=== PATIENT | female | born 1970 | race Caucasian/White ===

== ENCOUNTER 2019-01-03 13:34 | Emergency (ER) | payer SELFPAY ==
[2019-01-03 13:44] VITALS: BP 119/66; PULSE 72; RESP 13; TEMP 36.4; O2SAT 98
--- NOTE | 2019-01-03 14:01 | DI.RAD.S_ITS ---
PROCEDURE: XR CHEST 2V INDICATIONS: Hemoptysis and short of breath TECHNIQUE: 2 views of the chest were acquired. COMPARISON: [facility], , CHEST 2 VIEW, 10/16/2015, 8:55. FINDINGS: Surgical changes and devices: None. Lungs and pleura: Lungs are clear. No pleural effusions or pneumothorax. Mediastinum: Mediastinal contours are normal. Heart size is normal. Bones and chest wall: No suspicious bony abnormalities. Soft tissues appear unremarkable. IMPRESSION: No acute pulmonary process. Dictated by: Yoon Light M.D. on 01/03/2019 at 14:51 Approved by: Yoon Light M.D. on 01/03/2019 at 14:52
--- NOTE | 2019-01-03 14:07 | ED.CHESTPAIN ---
HPI - Chest Pain General Chief Complaint: Chest Pain Stated Complaint: left sided pain/coughing up blood x2 days Time Seen by Provider: 01/03/19 13:47 Source: patient Mode of arrival: ambulatory Limitations: no limitations History of Present Illness HPI narrative: Patient is a 48-year-old female who presents with hemoptysis. She states that 3 days ago she was gardening she thinks she might have pulled and twisted something she woke up in the left side of her chest hurt. She then coughed up blood. She also is getting extremely short of breath with exertion. She coughed up blood a couple more times after that. She denies any fever. Chest pain is worsened with deep breathing and movement. It is reproducible with palpation and sometimes actually feels better with palpation MD complaint: chest pain Duration: intermittent Related Data Previous Rx's Medication Instructions Recorded enoxaparin [Lovenox] 70 mg SUBCUT Q12H #120 ml 01/03/19 Allergies Allergy/AdvReac Type Severity Reaction Status Date / Time Penicillins Allergy Mild Rash Verified 01/03/19 16:27 Review of Systems Review of Systems ROS Unobtainable: All systems reviewed & are unremarkable except as noted in HPI and below Constitutional Constitutional: Denies chills, Denies fever(s), Denies lethargy and Denies weakness Eyes Eyes: Denies change in vision, Denies eye discharge, Denies irritation and Denies loss of vision ENT Ears, Nose, Mouth, and Throat: Denies change in voice, Denies neck pain and Denies sore throat Cardiovascular Cardiovascular: Reports as per HPI, Reports chest pain and Reports dyspnea on exertion Respiratory Respiratory: Reports hemoptysis and Reports dyspnea on exertion Gastrointestinal Gastrointestinal: Denies abdominal pain, Denies change in bowel habits, Denies diarrhea, Denies nausea and Denies vomiting Genitourinary Genitourinary: Denies hematuria, Denies flank pain, Denies urinary incontinence and Denies urinary urgency Musculoskeletal Musculoskeletal: Denies neck pain Integumentary/Breasts Skin/Breast: Denies pruritus, Denies erythema, Denies rash and Denies wounds Neurologic Neurologic: Denies loss of vision and Denies weakness [facility] Medical History Patient denies significant medical history (Acute) Social History (Updated 01/03/19 @ 14:12 by Vielka Cunningham DO) Smoking Status: Current every day smoker Social History Smoking Status: Current every day smoker Exam Initial Vital Signs Initial Vital Signs: Vital Signs Temperature 97.5 F L 01/03/19 13:44 Pulse Rate 72 01/03/19 13:44 Respiratory Rate 13 01/03/19 13:44 Blood Pressure 119/66 01/03/19 13:44 Pulse Oximetry 98 01/03/19 13:44 GENERAL: Well-appearing, well-nourished and in no acute distress. HEENT: Head atraumatic,EOMI, pupils reactive, face symmetric CARDIOVASCULAR: Pain left-sided chest reproducible with palpation Regular rate and rhythm without murmurs, rubs or gallops. RESPIRATORY: Breath sounds equal bilaterally, no wheezes rales or rhonchi. ABDOMEN: Soft, nontender. Normoactive bowel sounds all 4 quadrants. No guarding or rebound. EXTREMITIES: Normal range of motion, no clubbing or edema. Neurovascularly intact NEUROLOGICAL: Alert and oriented x4.Normal gait and speech. Cranial nerves II through XII grossly intact. SKIN: Warm, dry, no laceration, no petechiae, no rashes or lesions. Scores PERC Score Age greater than or equal to 50 years: Yes Heart rate greater than or equal to 100 bpm: No Room Air O2 Sat less than 95%: No Unilateral leg swelling: No Recent trauma or surgery: No Hemoptysis: Yes Prior PE or DVT: No Hormone Use: No Total PERC Score: 2 Course Orders Ordered: ED Orders 01/03/19 13:42 EKG-12 Lead Routine 01/03/19 14:01 XR chest 2V Stat 01/03/19 14:05 B Type Natriuretic Peptide Stat Complete Blood Count AUTO DIFF Stat Comprehensive Metabolic Panel Stat D Dimer Stat Lipase Stat Partial Thromboplastin Time Stat Prothrombin Time INR Stat Troponin & CK Cardiac Panel Stat 01/03/19 15:16 CT angio chest PE protocol Stat Discontinued Medications Enoxaparin Sodium (Lovenox) 70 mg 1 mg/kg (70 mg) SUBCUT NOW ONE Stop: 01/03/19 16:25 Last Admin: 01/03/19 16:36 Dose: 70 mg Documented by: SMILEY Vital Signs Vital signs: Vital Signs - 8 hr 01/03/19 13:44 01/03/19 14:46 01/03/19 17:30 Temperature 97.5 F L Pulse Rate 72 69 75 Respiratory Rate 13 16 14 Blood Pressure 119/66 114/80 Blood Pressure [Right Arm] 102/70 Pulse Oximetry 98 94 99 MDM - Chest Pain Lab Data Attestation: I reviewed the patient's lab results. Result diagrams: 01/03/19 14:05 01/03/19 14:05 Labs: Lab Results 01/03/19 01/03/19 01/03/19 Range/Units 14:05 14:05 14:05 WBC 6.4 (4.5-11.0) X10^3/uL RBC 4.42 (4.0-5.2) X10^6/uL Hgb 14.4 (12.0-16.0) g/dL Hct 41.9 (36-46) % MCV 94.9 (80-100) fL MCH 32.6 (26-34) PG MCHC 34.3 (30-36) % RDW 12.4 (11.6-14.8) % Plt Count 216 (150-400) X10^3/uL Neut % (Auto) 48.5 L (50-75) % Lymph % (Auto) 39.8 (25-40) % [place] % (Auto) 6.8 (3-14) % Eos % (Auto) 3.7 (2-4) % Baso % (Auto) 1.2 (0-2) % Neut # (Auto) 3100 (9509-0395) /uL Lymph # (Auto) 2500 (9790-9847) /uL [place] # (Auto) 400 (0-900) /uL Eos # (Auto) 200 (0-450) /uL Baso # (Auto) 100 (0-100) /uL PT 9.9 L (10.1-12.7) SECONDS INR 0.9 (0.9-1.3) APTT 29 (26.4-36.2) SECONDS D-Dimer 255 H (<230) ng/mL Sodium 141 (137-145) mmol/L Potassium 3.7 (3.4-5.1) mmol/L Chloride 105 (98-107) mmol/L Carbon Dioxide 25 (22-32) mmol/L BUN 9 (7-17) mg/dL Creatinine 0.50 L (0.52-1.04) mg/dL Estimated GFR > 60.0 (>60) mL/min BUN/Creatinine Ratio 18.0 (6-22) Glucose 84 (70-100) mg/dL Calcium 9.8 (8.4-10.2) mg/dL Total Bilirubin 0.7 (0.2-1.3) mg/dL AST 41 H (14-36) IU/L ALT 45 (9-52) IU/L Alkaline Phosphatase 97 (38-126) U/L Total Creatine Kinase 78 (30-135) U/L CK-MB (CK-2) TNP CK-MB (CK-2) Rel Index TNP Troponin I < 0.012 (0.01-0.034) ng/mL B-Natriuretic Peptide < 100 (<100) Total Protein 7.6 (6.3-8.2) g/dL Albumin 4.5 (3.5-5.0) g/dL Globulin 3.1 (1.7-4.1) g/dL Albumin/Globulin Ratio 1.5 (1.0-2.8) Lipase 165 (23-300) U/L Point of Care Testing Test Results Negative Urine Dip Bedside Urine Glucose Negative Bedside Urine Bilirubin - Negative Bedside Urine Ketone ++ 40 Urine Specific [place] 1.025 Bedside Urine Occult Blood - Negative Bedside Urine pH 5.5 Bedside Urine Protein - Negative Bedside Urine Urobilinogen - Negative Bedside Urine Nitrite - Negative Bedside Urine Leukocytes - Negative Esterase Imaging Data Chest x-ray: Radiologist's impression: PROCEDURE: XR CHEST 2V INDICATIONS: Hemoptysis and short of breath TECHNIQUE: 2 views of the chest were acquired. COMPARISON: [facility], CHEST 2 VIEW, 10/16/2015, 8:55. FINDINGS: Surgical changes and devices: None. Lungs and pleura: Lungs are clear. No pleural effusions or pneumothorax. Mediastinum: Mediastinal contours are normal. Heart size is normal. Bones and chest wall: No suspicious bony abnormalities. Soft tissues appear unremarkable. IMPRESSION: No acute pulmonary process. Dictated by: Yoon Light M.D. on 01/03/2019 at 14:51 Approved by: Yoon Light M.D. on 01/03/2019 at 14:52 CT scan - chest: Radiologist's impression: PROCEDURE: CT ANGIO CHEST PE PROTOCOL INDICATIONS: hemoptysis TECHNIQUE: After the administration of intravenous contrast, 2 mm thick sections acquired from the pulmonary apices to the posterior costophrenic angles. 3-dimensional maximum intensity projection (MIP) coronal and sagittal reformats were then acquired through the thorax. For radiation dose reduction, the following was used: automated exposure control, adjustment of mA and/or kV according to patient size. COMPARISON: [facility], CR, XR CHEST 2V, 01/03/2019, 14:07. FINDINGS: Image quality: Excellent. Pulmonary arteries: There is an acute pulmonary embolus identified within the left lower lobe posterior basilar segment with associated surrounding dilatation. Remainder the visualized pulmonary arteries are normal in size, and demonstrate no other intraluminal filling defects. No evidence for acute right-sided heart strain. Lungs and pleura: 5 mm pleural-based posterior right upper lung nodule seen on image 70, series 5. There is a noncalcified 5 mm anterior right middle lobe nodule seen on image 135, series 5. Scattered, patchy areas of ground glass opacities. Patchy bibasilar atelectasis in the dependent portions of the lungs. No pleural effusions or pneumothorax. Central and peripheral airways are patent. Mediastinum: Heart size is normal, without pericardial effusion. No mediastinal or hilar adenopathy. Thoracic aorta is normal in caliber and enhancement. Esophagus is normal in caliber, with small hiatal hernia. Bones and chest wall: No suspicious bony lesions. Ribs and thoracic spine appear intact throughout. Thyroid gland is unremarkable as visualized. No axillary or supraclavicular adenopathy. Abdomen: Visualized upper abdominal solid organs appear normal in the early arterial phase of enhancement. IMPRESSION: 1. Acute pulmonary embolus involving the posterior basal segment of the left lower lobe. Patchy bibasilar opacities in the dependent portions of the lungs are favored to represent atelectasis. Findings are most pronounced in the posterior left lung base. Early pulmonary infarction not excluded. 2. There are two 5 mm noncalcified pleural-based pulmonary nodules identified in the right hemithorax with one in the right upper lobe and one in the right middle lobe. Consider followup CT in 12 months to document continued stability. 3. Small hiatal hernia. Findings discussed with Dr. Cunningham of the emergency department at 1600 hours. Dictated by: Mehran Lopez M.D. on 01/03/2019 at 15:50 ECG Data Attestation: I personally reviewed and interpreted this ECG as follows: Prior ECG tracings: not available for review Interpretation: Normal sinus rhythm rate 76 p.r. interval 152 QRS 83 T-wave inversion noted in lead [address] elevations or depression MDM Narrative Medical decision making narrative: Patient does have hemoptysis in left-sided pain she is short of breath with exertion she is a PERC score of 2. D-dimer minimally elevated at 255. However I did discuss with her possible PE and need for CT scan. CT does show a small left lower lobe pulmonary embolism. She does not have insurance and she does not have a PCP. I discussed case briefly with hospitalist Dr. Solomon, at this time she does not meet inpatient criteria. Recommend Lovenox shots typically those are more affordable and arrange for outpatient follow-up possible. Discharge Plan Departure Patient Disposition: Home Clinical Impression: Pulmonary emboli Qualifiers: Pulmonary embolism type: unspecified Chronicity: acute Acute cor pulmonale presence: without acute cor pulmonale Qualified Code(s): I26.99 - Other pulmonary embolism without acute cor pulmonale Discharge Date/Time: 01/03/19 17:32 Instructions: DI for Pulmonary Embolism Activity Restrictions/Additional Instructions: *You have been diagnosed with pulmonary embolism *What to do: It is imperative that he follow up with the primary care physician. You will need more testing and close following. He will be on blood thinners for at least 6 months if not longer. Please avoid high a risk activities. If you should fall and hit her head while on blood thinners need to come to the emergency department immediately. While on blood thinners you will bleed easier *Continue to take medications as directed Lovenox 70 mg injection twice a day *Follow up with your primary care provider in 2-3 days, see list *Return to ER if you should have increasing shortness of breath chest pain hitting her head, blood in your stool or any new, worsening or concerning symptoms Prescriptions: New enoxaparin [Lovenox] 100 mg/mL syringe 70 mg SUBCUT Q12H Qty: 120 RF: 0 Referrals: [facility] [Provider Group] [facility] [Provider Group] [facility] [Provider Group] [facility] [Provider Group]
[2019-01-03 14:17] LABS: Add Manual Diff / Slide Review NO; Basophils Absolute Auto 100 /uL (0-100); Basophils Percent Auto 1.2 % (0-2); Eosinophils Absolute Auto 200 /uL (0-450); Eosinophils Percent Auto 3.7 % (2-4); Hematocrit 41.9 % (36-46); Hemoglobin 14.4 g/dL (12.0-16.0); Lymphocytes Absolute Auto 2500 /uL (1100-4500); Lymphocytes Percent Auto 39.8 % (25-40); Mean Corpuscular HGB Conc 34.3 % (30-36); Mean Corpuscular Hemoglobin 32.6 PG (26-34); Mean Corpuscular Volume 94.9 fL (80-100); Monocytes Absolute Auto 400 /uL (0-900); Monocytes Percent Auto 6.8 % (3-14); Neutrophils Absolute Auto 3100 /uL (1500-7000); Neutrophils Percent Auto 48.5 % (50-75); Platelet Count 216 X10^3/uL (150-400); Red Blood Cell Count 4.42 X10^6/uL (4.0-5.2); Red Cell Distribution Width 12.4 % (11.6-14.8); White Blood Cell Count 6.4 X10^3/uL (4.5-11.0)
[2019-01-03 14:24] LABS: INR 0.9 (0.9-1.3); Prothrombin Time 9.9 SECONDS (10.1-12.7)
[2019-01-03 14:27] LABS: D Dimer 255 ng/mL (<230); PTT Partial Thromboplastin Tim 29 SECONDS (26.4-36.2)
[2019-01-03 14:39] LABS: B Type Natriuretic Peptide < 100 (<100)
[2019-01-03 14:40] LABS: Alanine Aminotransferase 45 IU/L (9-52); Albumin 4.5 g/dL (3.5-5.0); Albumin Globulin Ratio 1.5 (1.0-2.8); Alkaline Phosphatase 97 U/L (38-126); Aspartate Aminotransferase 41 IU/L (14-36); Bilirubin Total 0.7 mg/dL (0.2-1.3); Blood Urea Nitrogen 9 mg/dL (7-17); Calcium 9.8 mg/dL (8.4-10.2); Carbon Dioxide 25 mmol/L (22-32); Chloride 105 mmol/L (98-107); Creatine Kinase 78 U/L (30-135); Estimated Glomerular Filt Rate > 60.0 mL/min (>60); Globulin 3.1 g/dL (1.7-4.1); Glucose 84 mg/dL (70-100); HEMOLYSIS < 15 (0-50); Lipase 165 U/L (23-300); Potassium 3.7 mmol/L (3.4-5.1); Sodium 141 mmol/L (137-145); Total Protein 7.6 g/dL (6.3-8.2)
[2019-01-03 14:46] VITALS: BP 102/70; PULSE 69; RESP 16; O2SAT 94
[2019-01-03 14:52] LABS: Troponin I < 0.012 ng/mL (0.01-0.034)
--- NOTE | 2019-01-03 15:16 | DI.CT.S_ITS ---
PROCEDURE: CT ANGIO CHEST PE PROTOCOL INDICATIONS: hemoptysis TECHNIQUE: After the administration of intravenous contrast, 2 mm thick sections acquired from the pulmonary apices to the posterior costophrenic angles. 3-dimensional maximum intensity projection (MIP) coronal and sagittal reformats were then acquired through the thorax. For radiation dose reduction, the following was used: automated exposure control, adjustment of mA and/or kV according to patient size. COMPARISON: [facility], CR, XR CHEST 2V, 01/03/2019, 14:07. FINDINGS: Image quality: Excellent. Pulmonary arteries: There is an acute pulmonary embolus identified within the left lower lobe posterior basilar segment with associated surrounding dilatation. Remainder the visualized pulmonary arteries are normal in size, and demonstrate no other intraluminal filling defects. No evidence for acute right-sided heart strain. Lungs and pleura: 5 mm pleural-based posterior right upper lung nodule seen on image 70, series 5. There is a noncalcified 5 mm anterior right middle lobe nodule seen on image 135, series 5. Scattered, patchy areas of ground glass opacities. Patchy bibasilar atelectasis in the dependent portions of the lungs. No pleural effusions or pneumothorax. Central and peripheral airways are patent. Mediastinum: Heart size is normal, without pericardial effusion. No mediastinal or hilar adenopathy. Thoracic aorta is normal in caliber and enhancement. Esophagus is normal in caliber, with small hiatal hernia. Bones and chest wall: No suspicious bony lesions. Ribs and thoracic spine appear intact throughout. Thyroid gland is unremarkable as visualized. No axillary or supraclavicular adenopathy. Abdomen: Visualized upper abdominal solid organs appear normal in the early arterial phase of enhancement. IMPRESSION: 1. Acute pulmonary embolus involving the posterior basal segment of the left lower lobe. Patchy bibasilar opacities in the dependent portions of the lungs are favored to represent atelectasis. Findings are most pronounced in the posterior left lung base. Early pulmonary infarction not excluded. 2. There are two 5 mm noncalcified pleural-based pulmonary nodules identified in the right hemithorax with one in the right upper lobe and one in the right middle lobe. Consider followup CT in 12 months to document continued stability. 3. Small hiatal hernia. Findings discussed with Dr. Cunningham of the emergency department at 1600 hours. Dictated by: Mehran Lopez M.D. on 01/03/2019 at 15:50 Approved by: Mehran Lopez M.D. on 01/03/2019 at 16:06
[2019-01-03] MEDS: ENOXAPARIN 80 MG/0.8 ML SYRINGE 70 MG SUBCUT (16:36)
[2019-01-03 17:30] VITALS: BP 114/80; PULSE 75; RESP 14; O2SAT 99
== END 2019-01-03 17:32 | disposition home or self-care (01) ==
PROVIDERS: Emergency Provider Emergency Medicine; Family Provider Internal Medicine
DX: I26.99 Other pulmonary embolism without acute cor pulmonale (principal)
CPT/HCPCS: 36591; 71046; 71275; 80053; 81003; 81025; 82550; 83690; 83880; 84484; 85025; 85379; 85610; 85730; 93005; 93010; 96372; 99283; 99285; J1650; Q9967

== ENCOUNTER → 2019-10-17 12:24 | Outpatient (CLI) | payer OTHER, SELFPAY ==
[2019-10-17 13:27] LABS: Add Manual Diff / Slide Review NO; Basophils Absolute Auto 100 /uL (0-100); Basophils Percent Auto 1.4 % (0-2); Eosinophils Absolute Auto 300 /uL (0-450); Eosinophils Percent Auto 4.7 % (2-4); Hematocrit 44.8 % (36-46); Hemoglobin 15.5 g/dL (12.0-16.0); Lymphocytes Absolute Auto 2400 /uL (1100-4500); Lymphocytes Percent Auto 44.2 % (25-40); Mean Corpuscular HGB Conc 34.5 % (30-36); Mean Corpuscular Hemoglobin 32.6 PG (26-34); Mean Corpuscular Volume 94.3 fL (80-100); Monocytes Absolute Auto 300 /uL (0-900); Monocytes Percent Auto 6.1 % (3-14); Neutrophils Absolute Auto 2300 /uL (1500-7000); Neutrophils Percent Auto 43.6 % (50-75); Platelet Count 230 X10^3/uL (150-400); Red Blood Cell Count 4.75 X10^6/uL (4.0-5.2); Red Cell Distribution Width 12.7 % (11.6-14.8); White Blood Cell Count 5.3 X10^3/uL (4.5-11.0)
[2019-10-17 13:30] LABS: Hemoglobin A1C% w Est Avg Glu 5.3 % (4.0-6.0)
[2019-10-17 13:38] LABS: Prothrombin Time 11.2 SECONDS (10.1-12.7)
[2019-10-17 13:53] LABS: Alanine Aminotransferase 22 IU/L (<35); Albumin 4.8 g/dL (3.5-5.0); Albumin Globulin Ratio 1.7 (1.0-2.8); Alkaline Phosphatase 84 U/L (38-126); Aspartate Aminotransferase 28 IU/L (14-36); BUN Creatinine Ratio 11.3 (6-22); Bilirubin Total 0.6 mg/dL (0.2-1.3); Blood Urea Nitrogen 6 mg/dL (7-17); Calcium 10.2 mg/dL (8.4-10.2); Carbon Dioxide 25 mmol/L (22-32); Chloride 109 mmol/L (98-107); Cholesterol 205 mg/dL (140-199); Estimated Glomerular Filt Rate > 60.0 mL/min (>60); Globulin 2.9 g/dL (1.7-4.1); Glucose 90 mg/dL (70-100); HDL Cholesterol 56 mg/dL (40-60); HEMOLYSIS < 15 (0-50); LDL Cholesterol Calculated 116 mg/dL (<100); Potassium 3.9 mmol/L (3.4-5.1); Sodium 142 mmol/L (137-145); Total Protein 7.7 g/dL (6.3-8.2); Triglycerides 167 mg/dL (35-150)
== END ==
PROVIDERS: Family Provider Internal Medicine; PCP Family Medicine; Referring Provider Family Medicine; Visit Provider Family Medicine
DX: I26.99 Other pulmonary embolism without acute cor pulmonale (principal)
CPT/HCPCS: 36415; 80053; 80061; 83036; 85025; 85610

== ENCOUNTER → 2019-11-09 09:51 | Outpatient (CLI) | payer OTHER, SELFPAY ==
--- NOTE | 2019-11-09 10:13 | DI.CT.S_ITS ---
PROCEDURE: CT ANGIO CHEST INDICATIONS: Follow-up pulmonary embolism TECHNIQUE: After the administration of intravenous contrast, 2 mm thick sections acquired from the pulmonary apices to the posterior costophrenic angles. 3-dimensional maximum intensity projection (MIP) coronal and sagittal reformats were then acquired through the thorax. For radiation dose reduction, the following was used: automated exposure control, adjustment of mA and/or kV according to patient size. COMPARISON: [facility], CT, CT ANGIO CHEST PE PROTOCOL, 01/03/2019, 15:21. FINDINGS: Image quality: Excellent. Pulmonary arteries: Pulmonary arteries are normal in size, and demonstrate no intraluminal filling defects to suggest central pulmonary embolism. Lungs and pleura: Lungs are clear of acute opacities. 4 millimeter subpleural nodule in the posterior aspect of the right upper lobe (series 5, image 74), 6 millimeter subpleural nodule in the right middle lobe (series 5, image 133) and 2 millimeter subpleural nodule in the lateral margin of the left lower lobe (series 5, image 162) are not significantly changed compared to the prior examination. No new lung nodules are identified. No pleural effusions or pneumothorax. Central and peripheral airways are patent. Mediastinum: Heart size is normal, without pericardial effusion. No mediastinal or hilar adenopathy. Thoracic aorta is normal in caliber and enhancement. Esophagus is normal in caliber. Small hiatal hernia. Bones and chest wall: No suspicious bony lesions. Ribs and thoracic spine appear intact throughout. Thyroid gland is within normal limits where visualized. No axillary or supraclavicular adenopathy. Abdomen: Visualized upper abdominal solid organs appear normal in the early arterial phase of enhancement. IMPRESSION: 1. No pulmonary embolus. Previously identified embolus involving the posterior basal segment of the right left lower lobe has resolved. 2. Small bilateral lung nodules not significantly changed compared to prior examination. Largest nodule measures 6 millimeters. Recommend follow-up CT scan in 6-12 months to confirm stability. Fleischner Society criteria for SOLID lung nodule followup. Nodule size (mm)Low-risk patientHigh-risk patient<6 (single or multiple)No routine followup.Optional CT at 12 months. 6-8 (single or multiple)CT at 6-12 months, then optional CT at 18-24 mo.CT at 6-12 months, then CT at 18-24 months. >8 (single)CT at 3 months, PET-CT, or biopsy. Same as for low-risk pts. >8 (multiple)CT at 3-6 months, then optional CT at 18-24 mo.CT at 3-6 months, then CT at 18-24 months. Recommendations do not apply to lung cancer screening, patients with immunosuppression, or patients with known primary cancer. Dictated by: Esther Ray MD, PhD on 11/09/2019 at 10:42 Approved by: Esther Ray MD, PhD on 11/09/2019 at 10:51
== END ==
PROVIDERS: Family Provider Internal Medicine; PCP Family Medicine; Referring Provider Family Medicine; Visit Provider Family Medicine
DX: I26.99 Other pulmonary embolism without acute cor pulmonale (principal); R91.8 Other nonspecific abnormal finding of lung field
CPT/HCPCS: 71275; Q9967

== ENCOUNTER → 2020-01-03 08:56 | Outpatient (CLI) | payer OTHER, SELFPAY ==
--- NOTE | 2020-01-03 09:06 | DI.MG.S_ITS ---
Patient Name: ELLY FLOREZ date: 1970 Sex: F Attending Physician: Gautam Indications: Date: 01/03/2020 08:59 At the request of: ALEX Dwayne GAUTAM Procedure: MM screening mammo BI BILATERAL DIGITAL SCREENING MAMMOGRAM 3D/2D WITH CAD: 01/03/2020 CLINICAL: Routine screening. Family history of breast cancer. Comparison is made to exams dated: 07/10/2017 mammogram - [facility], 10/24/2013 mammogram, and 01/23/2011 mammogram - [facility]. The tissue of both breasts is heterogeneously dense. This may lower the sensitivity of mammography. Current study was also evaluated with a Computer Aided Detection (CAD) system. No significant masses, calcifications, or other findings are seen in either breast. There has been no significant interval change. IMPRESSION: NEGATIVE There is no mammographic evidence of malignancy. A 1 year screening mammogram is recommended. This exam was interpreted at Station ID: [id number]. NOTE: For mammograms, a report in lay terms will be sent to the patient. Approximately 15% of breast malignancies will not be visualized mammographically. In the management of a palpable breast mass, a negative mammogram must not discourage biopsy of a clinically suspicious lesion. Electronically Signed By: Perlita pleitez/gely:01/03/2020 10:33:44 copy to: GAGE DE LEON, [facility], ph: [phone] letter sent: Normal Exam ACR BI-RADS Category 1: Negative [id number]
--- NOTE | 2020-01-24 08:46 | ONC.MSW ---
Description: New Referral Navigation Reason for Referral: Pulmonary Embolism: Evaluate for possible inherited clotting disorder. Activity: Reviewed the referral for medical status, acuity, and immediate needs. Forwarded to scheduling for next available initial consult time.
== END ==
PROVIDERS: Family Provider Internal Medicine; PCP Family Medicine; Referring Provider Family Medicine; Visit Provider Family Medicine
DX: Z12.31 Encounter for screening mammogram for malignant neoplasm of breast (principal); Z80.3 Family history of malignant neoplasm of breast
CPT/HCPCS: 77063; 77067

== ENCOUNTER 2020-09-14 09:00 | Emergency (ER) | payer OTHER, SELFPAY ==
[2020-09-14 09:16] VITALS: BP 127/54; PULSE 70; RESP 14; TEMP 36.7; O2SAT 99; BMI 32.0
--- NOTE | 2020-09-14 09:25 | DI.CT.S_ITS ---
PROCEDURE: CT HEAD/BRAIN WO CON INDICATIONS: fall on eliquis. TECHNIQUE: Noncontrast 4.5 mm thick angled axial sections acquired from the foramen magnum to the vertex, with coronal and sagittal reformats. For radiation dose reduction, the following was used: automated exposure control, adjustment of mA and/or kV according to patient size. COMPARISON: None. FINDINGS: Image quality: Excellent. CSF spaces: Basal cisterns are patent. No extra-axial fluid collections. The ventricles are symmetric in size and shape. Brain: No intracranial bleeds or masses. There is cerebral volume loss for age, with resultant ventricular and sulcal prominence. There are periventricular and deep white matter chronic small vessel ischemic changes. There is intracranial internal carotid artery atherosclerosis. Volume averaging artifact related to left temporal bone on image 8/2. Skull and face: Calvarium and visualized facial bones appear intact, without suspicious lesions. Sinuses: Visualized sinuses and mastoids are clear. IMPRESSION: No acute intracranial process. Dictated by: Travis Wise M.D. on 09/14/2020 at 9:35 Approved by: Travis Wise M.D. on 09/14/2020 at 9:38
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
[2020-09-14 11:30] VITALS: BP 116/64; PULSE 63; RESP 19; O2SAT 99
== END 2020-09-14 11:43 | disposition home or self-care (01) ==
PROVIDERS: Emergency Provider Emergency Medicine; Family Provider Family Medicine; PCP Family Medicine
DX: S09.90XA Unspecified injury of head, initial encounter (principal); V19.9XXA Pedal cyclist (driver) (passenger) injured in unspecified traffic accident, initial encounter; Z79.01 Long term (current) use of anticoagulants
CPT/HCPCS: 70450; 99284

== ENCOUNTER 2020-12-24 09:00 | Outpatient (RCR) | payer OTHER, SELFPAY ==
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
--- NOTE | 2020-10-15 15:46 | PT.OPPOC ---
Physical, Occupational & Speech Therapy At [facility] Current Diagnoses Pain in left shoulder (10/15/20) Cervicalgia (10/15/20) Dorsalgia, unspecified (10/15/20) Visit Care Team Role Provider Type Charli Macedo DO Primary Care Provider Physician Specialty: [facility] Address: [address] [place] [address], [address] Email: [email or web address] Attending Provider Advanced Sider Referring Provider Specialty: [facility] Address: [address] [place] [address], [address] Email: [email or web address] Plan Of Care PT-OP-T Assessment and Plan Start: 10/15/20 07:42 Freq: Status: Active Protocol: Document 10/15/20 08:15 AMB (Rec: 10/15/20 15:45 AMB [email or web address]) Physical Therapy Assessment Rehab Potential Rehabilitation Potential Good Evaluation Complexity Number of Personal Factors/Comorbidities 1-2 Number of Body Systems Impaired 4 or More Clinical Presentation at Evaluation Evolving Impairments Impairments Functional Activities,Pain, Posture,Strength Goals Three Impairment Strength Short Term Goal (STG) Elina will improve her strength to 4+/5 in all planes . STG Duration 5 weeks Analytics Developer Goal (LTG) Elina will improve her strength so that she chop firewood with 3/10 pain or less. 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 STG Duration 5 weeks Analytics Developer Goal (LTG) Elina will perform yardwork including mowing the lawn for 2 hours with 3/10 pain or less . LTG Duration 10 One Impairment ROM Short Term Goal (STG) Elina will raise her arm through full flexion without a painful arc. STG Duration 5 weeks Assessment Summary Assessment Elina attends physical therapy with pain and weakness with abduction and external rotation and painful arc. She does have neck pain and numbness/tingling over the ulnar aspect of the left hand and arm, and numbness did increase with cervical extension. However numbness also increased with scapular retraction, and will need to be further monitored. The patient's main concern is left shoulder pain, and she does show signs of rotator cuff weakness and impingement with significant muscle spasm in the muscles around the glenohumeral joint. Pt will benefit from strengthening of her scapula and rotator cuff, manual therapy to reduce muscle spasm so that she can return to her active lifestyle without L shoulder/neck pain and numbness. Physical Therapy Plan Frequency and Duration Frequency of Treatment 2x/Week Duration of Treatment 10 weeks Plan of Care Start Date 10/15/20 Plan of Care End Date 12/24/20 Therapeutic Interventions Therapeutic Interventions Home Exercise Program,Joint Mobilizations,Manual Therapy, Neuromuscular Re-education, Self-Care/Home Management, Therapeutic Activities, Therapeutic Exercises Modalities Cold Pack/Ice Massage,Electric Stimulation Next Visit Focus/Plan Next Note Type Treatment Note Next Visit Plan Instruct in HEP, follow up on hand numbness along ulnar eminence, manual therapy to reduce muscle spasm/tension as needed Plan of Care Dates Plan of Care Start Date 10/15/20 Plan of Care End Date 12/24/20 Electronically Signed by: Rostia Luna, PT 10/15/20 0492 Please Sign and Return: I have reviewed this Plan of Care and certify that the skilled therapy services above are required to meet the patient?s needs. Physician Signature Date Printed Name and Credentials Clinical Instructor Signature Printed Name and Credentials
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
--- NOTE | 2021-01-17 11:50 | PT.OPDS ---
Current Diagnoses Pain in left shoulder (12/24/20) Cervicalgia (12/24/20) Dorsalgia, unspecified (12/24/20) Visit Care Team Role Provider Type Charli Macedo DO Primary Care Provider Physician Specialty: [facility] Address: [address] [place] [address], [address] Email: [email or web address] Attending Provider Advanced Inspector [employer]ys Referring Provider Specialty: [facility] Address: [address] [place] [address], [facility] Email: 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 She agreed to be DC from PT.
== END 2021-01-17 13:18 | disposition home or self-care (01) ==
LOC: PHYS 09:00
PROVIDERS: PCP Family Medicine; Referring Provider Nurse Practitioner; Visit Provider Nurse Practitioner
DX: M54.2 Cervicalgia (principal); M54.9 Dorsalgia, unspecified; M25.512 Pain in left shoulder
CPT/HCPCS: 97110; 97140; 97162

== ENCOUNTER → 2021-01-15 17:09 | Outpatient (CLI) | payer OTHER, SELFPAY ==
--- NOTE | 2021-01-15 | DI.MG.S_ITS ---
BILATERAL DIGITAL SCREENING MAMMOGRAM 3D/2D WITH CAD: 01/15/2021 CLINICAL: Routine screening. Family history of breast cancer. Comparison is made to exams dated: 01/03/2020 mammogram - [facility], 07/10/2017 mammogram - [facility], and 10/24/2013 [place] [facility] - [facility]. The tissue of both breasts is heterogeneously dense. This may lower the sensitivity of mammography. Current study was also evaluated with a Computer Aided Detection (CAD) system. There is an irregular equal density asymmetry with an indistinct margin in the left breast at 1 o'clock middle depth. No other significant masses, calcifications, or other findings are seen in either breast. IMPRESSION: INCOMPLETE: NEEDS ADDITIONAL IMAGING EVALUATION The irregular equal density asymmetry in the left breast is indeterminate. Mediolateral and spot compression views as well as additional views with possible ultrasound are recommended. This exam was interpreted at Station ID: [id number]. NOTE: For mammograms, a report in lay terms will be sent to the patient. Approximately 15% of breast malignancies will not be visualized mammographically. In the management of a palpable breast mass, a negative mammogram must not discourage biopsy of a clinically suspicious lesion. Electronically Signed By: Silviano calixto/gely:01/16/2021 09:20:13 copy to: GAGE DE LEON, [facility], ph: [phone] letter sent: Additional Imaging Needed ACR BI-RADS Category 0: Incomplete 3340F
== END ==
PROVIDERS: PCP Family Medicine; Referring Provider Family Medicine; Visit Provider Family Medicine
DX: Z12.31 Encounter for screening mammogram for malignant neoplasm of breast (principal); Z80.3 Family history of malignant neoplasm of breast; N64.89 Other specified disorders of breast
CPT/HCPCS: 77063; 77067

== ENCOUNTER → 2021-01-30 09:14 | Outpatient (CLI) | payer OTHER, SELFPAY ==
--- NOTE | 2021-01-30 | DI.MG.S_ITS ---
UNILATERAL LEFT DIGITAL DIAGNOSTIC MAMMOGRAM 3D/2D WITH ADDITIONAL VIEWS: 01/30/2021 CLINICAL: Additional evaluation requested from prior study. Comparison is made to exams dated: 01/15/2021 mammogram, 01/03/2020 mammogram - [facility], and 07/10/2017 mammogram - [facility]. The tissue of left breast is heterogeneously dense. This may lower the sensitivity of mammography. The irregular focal asymmetry with indistinct margins in the left breast at 1 o'clock middle depth does not persist on additional views. This looks unchanged compared to prior mammograms. No other significant masses or calcifications are seen in the breast. IMPRESSION: BENIGN There is no mammographic evidence of malignancy. A 1 year screening mammogram is recommended. This exam was interpreted at Station ID: [id number]. NOTE: For mammograms, a report in lay terms will be sent to the patient. Approximately 15% of breast malignancies will not be visualized mammographically. In the management of a palpable breast mass, a negative mammogram must not discourage biopsy of a clinically suspicious lesion. Electronically Signed By: Silviano Bailey M.D. ddp/:01/30/2021 10:02:55 copy to: GAGE DE LEON, [facility], ph: [phone] letter sent: Normal Exam ACR BI-RADS Category 2: Benign Finding(s) 3342F
== END ==
PROVIDERS: PCP Family Medicine; Referring Provider Family Medicine; Visit Provider Family Medicine
DX: N63.20 Unspecified lump in the left breast, unspecified quadrant (principal)
CPT/HCPCS: 77065; G0279

== ENCOUNTER → 2021-08-31 11:30 | Outpatient (CLI) | payer OTHER, SELFPAY ==
--- NOTE | 2021-08-31 11:32 | DI.RAD.S_ITS ---
PROCEDURE: XR CHEST 2V INDICATIONS: productive cough, concern for PNA TECHNIQUE: 2 views of the chest were acquired. COMPARISON: CT, CT ANGIO CHEST, 11/09/2019, 10:09. [facility], CR, XR CHEST 2V, 01/03/2019, 14:07. FINDINGS: Surgical changes and devices: None. Lungs and pleura: Lungs are clear. No pleural effusions or pneumothorax. Mediastinum: Mediastinal contours are normal. Heart size is normal. Bones and chest wall: No suspicious bony abnormalities. Soft tissues appear unremarkable. IMPRESSION: No acute cardiopulmonary process. Dictated by: Rose Campbell M.D. on 08/31/2021 at 11:41 Approved by: Rose Campbell M.D. on 08/31/2021 at 11:42
== END ==
PROVIDERS: PCP Family Medicine; Referring Provider Physician Assistant; Visit Provider Physician Assistant
DX: J06.9 Acute upper respiratory infection, unspecified (principal)
CPT/HCPCS: 71046

== ENCOUNTER → 2022-03-14 07:50 | Outpatient (CLI) | payer OTHER, SELFPAY ==
--- NOTE | 2022-03-14 | DI.MG.S_ITS ---
BILATERAL DIGITAL SCREENING MAMMOGRAM 3D/2D WITH CAD: 03/14/2022 CLINICAL: Routine screening. Comparison is made to exams dated: 01/30/2021 mammogram, 01/15/2021 mammogram, 01/03/2020 mammogram - [facility], and 07/10/2017 mammogram - [facility]. Both breasts are heterogeneously dense, which may obscure small masses (category c / 51-75% glandular tissue). Current study was also evaluated with a Computer Aided Detection (CAD) system. No significant masses, calcifications, or other findings are seen in either breast. There has been no significant interval change. IMPRESSION: NEGATIVE There is no mammographic evidence of malignancy. A 1 year screening mammogram is recommended. Based on the Tyrer Cuzick model (a risk assessment model) the patient's lifetime risk is 14.0% and her 10 year risk is 4.1%. According to the ACR, ACS, and NCCN guidelines, an annual breast MRI exam along with mammogram is recommended if the patient's lifetime risk is 20% or greater. This exam was interpreted at Station ID: [id number]. NOTE: For mammograms, a report in lay terms will be sent to the patient. Approximately 15% of breast malignancies will not be visualized mammographically. In the management of a palpable breast mass, a negative mammogram must not discourage biopsy of a clinically suspicious lesion. Electronically Signed By: Varun black/gely:03/14/2022 08:24:56 copy to: GAGE DE LEON, , ph: [phone] letter sent: Normal Exam ACR BI-RADS Category 1: Negative 3341F
== END ==
PROVIDERS: PCP Family Medicine; Referring Provider Family Medicine; Visit Provider Family Medicine
DX: Z12.31 Encounter for screening mammogram for malignant neoplasm of breast (principal)
CPT/HCPCS: 77063; 77067

== ENCOUNTER 2022-03-29 06:56 | Emergency (ER) | payer OTHER, SELFPAY ==
[2022-03-29 07:02] VITALS: BP 128/63; PULSE 78; RESP 20; TEMP 37.3; O2SAT 96; BMI 30.3
--- NOTE | 2022-03-29 07:12 | DI.RAD.S_ITS ---
PROCEDURE: XR CHEST 2V INDICATIONS: cough, congestion TECHNIQUE: 2 views of the chest were acquired. COMPARISON: [facility], , CHEST 2 VIEW, 10/16/2015, 8:55. [facility], , XR CHEST 2V, 01/03/2019, 14:07. [facility], CR, XR CHEST 2V, 08/31/2021, 11:50. FINDINGS: Surgical changes and devices: None. Lungs and pleura: Lungs are clear. No pleural effusions or pneumothorax. Mediastinum: Mediastinal contours are normal. Heart size is normal. Bones and chest wall: No suspicious bony abnormalities. Soft tissues appear unremarkable. IMPRESSION: No focal infiltrates are seen. Dictated by: Sandoval Winkler M.D. on 03/29/2022 at 7:11 Approved by: Sandoval Winkler M.D. on 03/29/2022 at 7:12
[2022-03-29 09:19] LABS: Influenza A - CEPHEID Flu A POSITIVE (NEGATIVE); Influenza B - CEPHEID Flu B NEGATIVE (NEGATIVE); Respiratory Syncytial Virus Negative (Negative)
[2022-03-29 09:31] LABS: COVID-19 CEPHEID 4-PLEX PCR Negative (Negative)
--- NOTE | 2022-03-29 09:56 | ED_ITS ---
HPI - URI/Sore Throat General Chief Complaint: Upper Respiratory Symptoms Stated Complaint: chest wynn/coughed up blood Time Seen by Provider: 03/29/22 08:21 Source: patient Mode of arrival: Ambulatory Limitations: no limitations History of Present Illness HPI Narrative: This is a 52-year-old female on Eliquis for prior blood clots and recent antibiotic for bacterial vaginosis with complaint chills, rigors, nasal congestion, cough with clear productive sputum and occasional very small streaks of blood, some mild burning in her chest, no shortness of breath and chest congestion for the past 4 days. Patient has not had any nausea or vomiting. She has had decreased appetite. She is had some diarrhea which is more of a chronic issue. No black or bloody stools. No abdominal pain. She is had some muscle aches. Related Data Home Medications Medication Instructions Recorded Confirmed apixaban 5 mg tablet (Eliquis) 5 mg PO BID 10/17/19 08/31/21 Allergies Allergy/AdvReac Type Severity Reaction Status Date / Time Penicillins Allergy Mild Rash Verified 08/31/21 11:00 Dairy AdvReac Gas, Uncoded 08/31/21 11:00 bloat, diahrrea, increased sinus mucus Review of Systems Review of Systems ROS Unobtainable: All systems reviewed & are unremarkable except as noted in HPI and below Patient History Medical History Abnormal chest xray (~2018) Cervical cancer (~2007) Chicken pox Chronic anticoagulation Hypertriglyceridemia Patient denies significant medical history Pulmonary embolism (~2018) Tobacco abuse counseling Well adult health check Surgical History Anesthesia History of loop electrical excision procedure (LEEP) (~2007) Family History Father Diabetes mellitus Lung cancer Sister Cancer History of HPV infection Grandfather Breast cancer Social History Smoking Status: Former smoker Smoking Status: Former smoker alcohol intake frequency: 0-2 drinks per day Substance Use Type: marijuana Exam Narrative Exam Narrative: GEN: well nourished, well appearing female, alert and oriented x 3, patient appears to be in mild distress. HEENT: Atraumatic, pupils are equal round reactive to light, extraocular movements are intact, nares are clear. Throat is clear without any exudates, erythema, tonsillar enlargement or uvular deviation HEART: Regular rate and rhythm without murmur, clicks, rubs. No carotid bruits, pulses are equal in upper and lower extremities LUNGS:Lungs clear to auscultation, no wheezes, rales, crackles, chest moves symmetrically, no tachypnea accessory muscle use. Mild cough ABD:bowel sounds normal, soft, non-tender, no guarding, rebound, rigidity, no masses noted, no hepatosplenomegaly :No CVA tenderness MSCL: Non-tender, no muscle atrophy, muscles strength 5/5 upper and lower extremities, full range of motion, normal gait NEURO:CN 2-12 intact, sensation normal Initial Vital Signs Initial Vital Signs: Vital Signs Temperature 99.2 F 03/29/22 07:02 Pulse Rate 78 03/29/22 07:02 Respiratory Rate 20 03/29/22 07:02 Blood Pressure 128/63 03/29/22 07:02 Pulse Oximetry 96 03/29/22 07:02 Oxygen Delivery Method 03/29/22 07:02 Course Orders Ordered: ED Orders 03/29/22 07:12 XR chest 2V Stat 03/29/22 07:16 Covid-19 + FLU A/B + RSV - PCR Stat Vital Signs Vital signs: Vital Signs - 8 hr 03/29/22 07:02 Temperature 99.2 F Pulse Rate 78 Respiratory Rate 20 Blood Pressure 128/63 Pulse Oximetry 96 Oxygen Delivery Method Room Air MDM - URI/Sore Throat Lab Data Labs: Lab Results 03/29/22 Range/Units 07:16 SARS-CoV-2 (PCR) Negative (Negative) Influenza A (RT-PCR) Flu a positive H (NEGATIVE) Influenza B (RT-PCR) Flu b negative (NEGATIVE) RSV (PCR) Negative (Negative) Imaging Data Chest x-ray: Radiologist's Impression: [address] [address] XRay Report Signed Patient: Elina Macedo MR#: [id number] : 1970 Acct:[id number] Age/Sex: 52 / F Date of Service: 03/29/22 Loc: ED Accession Number: [id number] ?? Procedure: XR chest 2V Ordering Provider: Joycelyn Fisher D.O. PROCEDURE:? XR CHEST 2V ? INDICATIONS:? cough, congestion ? TECHNIQUE:? 2 views of the chest were acquired.? ? COMPARISON:? [facility], , CHEST 2 VIEW, 10/16/2015, 8:55.? [facility], , XR CHEST 2V, 01/03/2019, 14:07.? [facility], , XR CHEST 2V, 08/31/2021, 11:50. ? FINDINGS:? ? Surgical changes and devices:? None.? ? Lungs and pleura:? Lungs are clear.? No pleural effusions or pneumothorax.? ? Mediastinum:? Mediastinal contours are normal.? Heart size is normal.? ? Bones and chest wall:? No suspicious bony abnormalities.? Soft tissues appear unremarkable.? ? IMPRESSION:? No focal infiltrates are seen. ? ? Dictated by: Sandoval Winkler M.D. on 03/29/2022 at 7:11 ? ? Approved by: Sandoval Winkler M.D. on 03/29/2022 at 7:12?? MDM Narrative Medical decision making narrative: This is a 52-year-old female anticoagulated for pulmonary emboli with history of cough congestion little bit of mild chest burning without shortness of breath who is positive for influenza a. Patient's chest x-ray is negative. My suspicion for cardiac cause or pulmonary emboli is quite low so additional workup was not performed. Patient's vitals are appropriate here. Return precautions discussed. Discharge Plan Departure Patient Disposition: Home Clinical Impression: Influenza A Instructions: DI for Influenza -- Adult Activity Restrictions/Additional Instructions: You have tested positive for influenza a today, this is a viral illness that typically 10 days. You may take Tylenol and/or ibuprofen as needed for fevers and symptoms. You can take [id number] cough and cold medicine as needed. Please continue home medications as prescribed. Please return for rapidly worsening symptoms, if you or coughing up increasing large amounts of blood, increasing chest pain or pressure, shortness of breath, passing out, persistent vomiting, black or bloody stools, signs of dehydration or other new or concerning changes. Prescriptions: No Action Eliquis 5 mg tablet 5 mg PO BID Referrals: Charli Macedo DO [Primary Care Provider] - Stand Alone Forms: Work Release Note Visit Report Forms: Patient Portal/API
[2022-03-29 10:36] VITALS: BP 120/78; PULSE 78; RESP 14; O2SAT 99
== END 2022-03-29 10:38 | disposition home or self-care (01) ==
PROVIDERS: Emergency Provider Emergency Medicine; PCP Family Medicine
DX: J10.1 Influenza due to other identified influenza virus with other respiratory manifestations (principal); Z87.891 Personal history of nicotine dependence
CPT/HCPCS: 0241U; 71046; 99282; 99283

== ENCOUNTER → 2023-04-24 08:04 | Outpatient (CLI) | payer OTHER, SELFPAY ==
--- NOTE | 2023-04-24 | DI.MG.S_ITS ---
BILATERAL DIGITAL SCREENING MAMMOGRAM 3D/2D WITH CAD: 04/24/2023 CLINICAL: Routine screening. Family history of breast cancer. Comparison is made to exams dated: 03/14/2022 mammogram, 01/30/2021 mammogram, 01/15/2021 mammogram, and 01/03/2020 mammogram - [facility]. Both breasts are heterogeneously dense, which may obscure small masses (category c / 51-75% glandular tissue). Current study was also evaluated with a Computer Aided Detection (CAD) system. No significant masses, calcifications, or other findings are seen in either breast. There has been no significant interval change. IMPRESSION: NEGATIVE There is no mammographic evidence of malignancy. A 1 year screening mammogram is recommended. Based on the Tyrer Cuzick model (a risk assessment model) the patient's lifetime risk is 13.9% and her 10 year risk is 4.3%. According to the ACR, ACS, and NCCN guidelines, an annual breast MRI exam along with mammogram is recommended if the patient's lifetime risk is 20% or greater. This exam was interpreted at Station ID: [id number]. NOTE: For mammograms, a report in lay terms will be sent to the patient. Approximately 15% of breast malignancies will not be visualized mammographically. In the management of a palpable breast mass, a negative mammogram must not discourage biopsy of a clinically suspicious lesion. Electronically Signed By: Jairo gonzalez/gely:04/24/2023 15:03:09 copy to: GAGE DE LEON, [facility], ph: [phone] letter sent: Normal Exam ACR BI-RADS Category 1: Negative 3341F
== END ==
PROVIDERS: PCP Family Medicine; Referring Provider Family Medicine; Visit Provider Family Medicine
DX: Z12.31 Encounter for screening mammogram for malignant neoplasm of breast (principal); Z80.3 Family history of malignant neoplasm of breast
CPT/HCPCS: 77063; 77067

== ENCOUNTER → 2024-06-14 07:02 | Outpatient (CLI) | payer OTHER, SELFPAY ==
[2024-06-14 08:50] LABS: Cholesterol 240 mg/dL (140-199); HDL Cholesterol 64 mg/dL (40-60); LDL Cholesterol Calculated 147 mg/dL (<100); Triglycerides 147 mg/dL (35-150)
== END ==
PROVIDERS: PCP Student in an Organized Health Care Education/Training Program; Referring Provider Student in an Organized Health Care Education/Training Program; Visit Provider Student in an Organized Health Care Education/Training Program
DX: E78.5 Hyperlipidemia, unspecified (principal)
CPT/HCPCS: 36415; 80061

== ENCOUNTER → 2024-06-21 14:02 | Outpatient (CLI) | payer OTHER, SELFPAY ==
--- NOTE | 2024-06-21 14:04 | DI.MG.S_ITS ---
BILATERAL DIGITAL SCREENING MAMMOGRAM 3D/2D WITH CAD: 06/21/2024 CLINICAL: Routine screening. Family history of breast cancer. Comparison is made to exams dated: 04/24/2023 mammogram, 03/14/2022 mammogram, and 01/15/2021 mammogram - [facility]. There are scattered areas of fibroglandular density (category b / 25%-50% glandular tissue). Current study was also evaluated with a Computer Aided Detection (CAD) system. No significant masses, calcifications, or other findings are seen in either breast. There has been no significant interval change. IMPRESSION: NEGATIVE There is no mammographic evidence of malignancy. A 1 year screening mammogram is recommended. Based on the Tyrer Cuzick model (a risk assessment model) the patient's lifetime risk is 9.2% and her 10 year risk is 3.0%. According to the ACR, ACS, and NCCN guidelines, an annual breast MRI exam along with mammogram is recommended if the patient's lifetime risk is 20% or greater. This exam was interpreted at Station ID: [id number]. NOTE: For mammograms, a report in lay terms will be sent to the patient. Approximately 15% of breast malignancies will not be visualized mammographically. In the management of a palpable breast mass, a negative mammogram must not discourage biopsy of a clinically suspicious lesion. Electronically Signed By: Mehran alford/gely:06/21/2024 17:23:58 copy to: GAGE DE LEON, [facility], ph: [phone] letter sent: Normal Exam ACR BI-RADS Category 1: Negative
== END ==
PROVIDERS: PCP Student in an Organized Health Care Education/Training Program; Referring Provider Student in an Organized Health Care Education/Training Program; Visit Provider Student in an Organized Health Care Education/Training Program
DX: Z12.31 Encounter for screening mammogram for malignant neoplasm of breast (principal); Z80.3 Family history of malignant neoplasm of breast
CPT/HCPCS: 77063; 77067

== ENCOUNTER 2024-10-13 13:00 | Day surgery (SDC) | payer OTHER, SELFPAY ==
--- NOTE | 2024-10-13 | PATH_ITS ---
[facility] Accession Number: [id number] No. of containers..03 Tissue . 01 Material submitted: . PART A: duodenum - DUODENUM PART B: stomach - ANTRUM PART C: colon - CECAL POLYP . 01 Diagnosis: Part A: DUODENUM: Duodenal mucosa with no diagnostic alterations. No active inflammation and no evidence of celiac disease. . Part B: ANTRUM: Gastric antral mucosa with no diagnostic alterations. No Helicobacter organisms identified on H/E stain. No intestinal metaplasia, dysplasia, or malignancy identified. . Part C: CECAL POLYP: Tubular adenoma. [facility] 10/20/2024 1418 Local . 01 Electronically signed: . Silviano Harmon MD, Pathologist NPI- [id number] . 01 Gross description: . Part A: DUODENUM: Received in formalin are 3 fragment(s) of treadwell, soft tissue measuring 0.1 x 0.1 x 0.1 cm to 0.3 x 0.3 x 0.2 cm submitted entirely in 1 cassette(s) . Part B: ANTRUM: Received in formalin are 4 fragment(s) of treadwell, soft tissue measuring 0.1 x 0.1 x 0.1 cm to 0.3 x 0.2 x 0.2 cm submitted entirely in 1 cassette(s) . Part C: CECAL POLYP: Received in formalin is 1 fragment(s) of treadwell, soft tissue measuring 0.9 x 0.4 x 0.4 cm submitted entirely in 1 cassette(s) /[facility] 10/20/2024 1418 Local . 01 Pathologist provided ICD-10: D12.0 . 01 CPT . 705339, [id number], [id number] Specimen Comment: A courtesy copy of this report has been sent to [phone] Performed at: [address] [facility] [address] [address] [address], [place], [place] [id number] MD Silviano Harmon MD Phone: [phone]
[2024-10-13 13:23] VITALS: BP 109/72; PULSE 71; RESP 17; TEMP 36.1; O2SAT 96
[2024-10-13] MEDS: LACTATED RINGERS 1,000 ML 84 ML IV (13:32)
--- NOTE | 2024-10-13 14:22 | PM.HP.IH.1 ---
History of Present Illness History of Present Illness Date Patient Seen: 10/13/24 Time Patient Seen: 14:22 Chief complaint: SDC Narrative: Elina Harvey is a 54 year old woman with chronic diarrhea. See office note from August for details. [facility] Medical History (Updated 06/17/24 @ 15:35 by Adele Anderson MD) Chronic anticoagulation Hypertriglyceridemia Tobacco abuse counseling Abnormal chest xray (~2018) Chicken pox Cervical cancer (~2007) Well adult health check Pulmonary embolism (~2018) Patient denies significant medical history Surgical History (Updated 05/20/24 @ 17:13 by Adele Anderson MD) History of loop electrical excision procedure (LEEP) (~2007) Anesthesia Family History Father Diabetes mellitus Lung cancer Sister Cancer History of HPV infection Grandfather Breast cancer Social History Smoking Status: Former smoker alcohol intake: current Meds Home Medications and Allergies Home Medications ?Medication ?Instructions ?Recorded ?Confirmed ?Type acetyltyrosine 350 mg-vitamin B6 5 cap PO 05/20/24 09/06/24 History mg capsule cholecalciferol (vitamin D3) 25 25 mcg PO DAILY 10/13/24 10/13/24 History mcg (1,000 unit) tablet (Vitamin D3) Allergies Allergy/AdvReac Type Severity Reaction Status Date / Time Penicillins Allergy Mild Rash Verified 10/13/24 13:15 Dairy AdvReac Gas, Uncoded 10/13/24 13:15 bloat, diahrrea, increased sinus mucus Exam Vital Signs (past 8 hours): - 10/13/24 13:23 Temperature 97.0 F L Pulse Rate 71 Respiratory Rate 17 Blood Pressure 109/72 Pulse Oximetry 96 Oxygen Delivery Method Room Air Oxygen Delivery Method Room Air Const General: No acute distress Assessment & Plan Assessment and plan (1) Chronic diarrhea: Status: Acute Plan EGD and colonoscopy for chronic diarrhea Time-Based Coding :: [TOTAL MINUTES] spent with patient and on the chart (including review of chart, obtaining history, exam, reviewing outside data, placing orders, documenting exam and treatment plan, and counseling patient) on [DATE]. PROFEE Director Zone Document charge(s): No
--- NOTE | 2024-10-13 15:29 | PM.OP.EC ---
Operative Date/Time/Diagnoses Date of procedure: 10/13/24 Time of procedure: 15:29 Pre-op diagnosis: Chronic diarrhea Post-op diagnosis: same Procedure & Clinicians Study performed: EGD and colonoscopy Same procedure(s) as scheduled: Yes Surgeon: Lloyd Hilton Procedure Notes Procedure in detail: Surgeon: Lloyd Hilton MD Anesthesia: Gil Clifford CRNA Procedure in detail: A timeout was performed. A bite blocked was placed and monitors were attached to the patient. The patient was positioned in the left lateral decubitus position. Sedation was administered. Once the patient was sedated the endoscope was inserted through the bite block and passed through the esophagus and stomach and into the duodenum. Random biopsies were taken from the duodenum with cold forceps. We then withdrew the scope into the stomach. There was some mild antritis and random biopsies were taken with cold forceps from the antrum. The endoscope was retroflexed and a hiatal hernia was noted. The endoscope was straightned and withdrawn into the esophagus. No abnormalities were found in the esophagus. EGD findings: Mild antritis and a hiatal hernia Next we repositioned the patient for a colonoscopy. A digital rectal exam was performed and was normal. The colonoscope was inserted and advanced to the cecum. The appendiceal orifice was identified and photographed. The scope was slowly withdrawn over greater than 6 minutes. There was a 6 mm polyp in the cecum removed with a cold snare. Were no obvious areas of colitis. The scope was retroflexed in the rectum and no other abnormalities. Colonoscopy findings: 6 mm polyp in the cecum Total procedural EBL: 5 mL Scope withdrawal time: 10 minutes Sedation minutes: 23 minutes Post-procedure Disposition: PACU
[2024-10-13 15:31] VITALS: BP 103/62; PULSE 66; RESP 21; TEMP 36.4; O2SAT 97
[2024-10-13 15:39] VITALS: BP 116/79; PULSE 57; RESP 15; O2SAT 97
[2024-10-13 15:43] VITALS: BP 118/65; PULSE 10; RESP 99
== END 2024-10-13 15:55 | disposition home or self-care (01) ==
PROVIDERS: PCP Student in an Organized Health Care Education/Training Program; Referring Provider Surgery; Visit Provider Surgery
PROC: 0DJ08ZZ Inspection of Upper Intestinal Tract, Via Natural or Artificial Opening Endoscopic (ICD-10-PCS; CPT 45385; principal; 2024-10-13 14:45)
PROC: 0DJD8ZZ Inspection of Lower Intestinal Tract, Via Natural or Artificial Opening Endoscopic (ICD-10-PCS; CPT 45378; 2024-10-13 14:45)
DX: R19.7 Diarrhea, unspecified (principal); K29.50 Unspecified chronic gastritis without bleeding; K44.9 Diaphragmatic hernia without obstruction or gangrene; D12.0 Benign neoplasm of cecum
CPT/HCPCS: 45385; 43239; J2704; J3010